=== PATIENT | male | born 1940 | race Native Hawaiian/Other Pacific Islander ===

== ENCOUNTER 2016-10-30 21:56 | Emergency (ER) | payer MEDICAID ==
[2016-10-30 22:27] VITALS: BP 136/95; PULSE 58; RESP 16; TEMP 98.2; O2SAT 98
--- NOTE | 2016-10-30 23:14 | ED PDOC ---
HPI: General Adult Time Seen by Provider: 10/30/16 22:36 Chief Complaint (Nursing): Flu-like Symptoms Chief Complaint (Provider): Ear pain History Per: Patient, Family History/Exam Limitations: no limitations Onset/Duration Of Symptoms: Days (7) Additional Complaint(s): Pt presents with family member who states pt with continued chills and generalized weakness, now with bilateral ear pain. Pt was discharged on 10/20/16 after being admitted for pneumonia, discharged home with course of Zithromax. Family member states pt with blood on Q tip after cleaning. Denies fever, CP, SOB, ear discharge. Past Medical History Reviewed: Nursing Documentation, Vital Signs Vital Signs: Last Vital Signs Temp 98.2 F 10/30/16 22:24 Pulse 58 L 10/30/16 22:24 Resp 16 10/30/16 22:24 BP 136/95 H 10/30/16 22:24 Pulse Ox 98 10/31/16 07:04 - Medical History PMH: CAD, Depression, Diabetes, HTN Denies: Chronic Kidney Disease - Surgical History Surgical History: Back Surgery - Family History Family History: States: Unknown Family Hx - Social History Current smoker - smoking cessation education provided: No Ex-Smoker (has not smoked in the last 12 months): Yes Alcohol: None - Home Medications Home Medications: Ambulatory Orders Medication Instructions Recorded Aspirin [Aspirin Chewable] 81 mg PO DAILY 10/16/16 Atorvastatin [Lipitor] 20 mg PO DAILY 10/16/16 Citalopram Hydrobromide [Celexa] 10 mg PO DAILY 10/16/16 Losartan [Cozaar] 50 mg PO DAILY 10/16/16 Mirtazapine [Remeron] 15 mg PO HS 10/16/16 metFORMIN [glucOPHAGE] 500 mg PO BID 10/16/16 Azithromycin [Zithromax Tri-Fawad] 500 mg PO DAILY #4 tablet 10/18/16 Amoxicillin/Potassium Clav 2 each PO BID #40 tab.er.12h 10/31/16 [Augmentin Xr 1,000-62.5 Tab] - Allergies Allergies/Adverse Reactions: Allergies Allergy/AdvReac Type Severity Reaction Status Date / Time No Known Allergies Allergy Verified 10/30/16 22:24 Review of Systems Constitutional: Positive for: Chills. Negative for: Fever, Sweats ENT: Positive for: Ear Pain. Negative for: Ear Discharge Cardiovascular: Negative for: Chest Pain, Palpitations Respiratory: Negative for: Cough, Shortness of Breath Gastrointestinal: Negative for: Nausea, Vomiting, Abdominal Pain, Diarrhea Skin: Negative for: Rash, Lesions Neurological: Positive for: Weakness. Negative for: Headache Physical Exam - Reviewed Nursing Documentation Reviewed: Yes Vital Signs Reviewed: Yes - Physical Exam Appears: Positive for: Well, No Acute Distress Skin: Positive for: Normal Color, Warm, Dry Cardiovascular/Chest: Positive for: Regular Rate, Rhythm Respiratory: Positive for: Crackles (Bibasilar). Negative for: Decreased Breath Sounds, Accessory Muscle Use, Rales Gastrointestinal/Abdominal: Positive for: Normal Exam, Bowel Sounds Extremity: Negative for: Tenderness, Swelling Neurologic/Psych: Positive for: Alert, kiss mixer II-XII, Oriented. Negative for: Motor/Sensory Deficits, Facial Droop - Laboratory Results Result Diagrams: 10/30/16 23:36 10/30/16 23:36 - ECG Interpretation Of ECG: Sinus tiffanie @ 49, RBBB (old). O2 Sat by Pulse Oximetry: 98 Disposition - Clinical Impression Clinical Impression: Bradycardia - Disposition Referrals: [facility] [Outside] Disposition: Transfer of Care Disposition Time: 00:00 Condition: STABLE Prescriptions: Amoxicillin/Potassium Clav [Augmentin Xr 1,000-62.5 Tab] 2 each PO BID #40 tab.er.12h Patient Signed Over To: Inge Erwin Handoff Comments: Pending labs.
[2016-10-30 23:39] LABS: BASO # 0.1 K/uL (0.0-0.2); BASO % 0.8 % (0.0-2.0); EOS # 0.2 K/uL (0.0-0.7); EOS % 2.9 % (0.0-4.0); HEMATOCRIT 40.1 % (35.0-51.0); LYMPH # 2.2 K/uL (1.0-4.3); LYMPH % 28.4 % (20.0-40.0); MEAN CELL VOLUME 91.2 fl (80.0-94.0); MEAN CORPUSCULAR HEMOGLOBIN 31.1 pg (27.0-31.0); MEAN CORPUSCULAR HGB CONC 34.1 g/dL (33.0-37.0); MEAN PLATELET VOLUME 6.8 fl (7.2-11.7); MONO # 0.7 K/uL (0.0-0.8); MONO % 9.2 % (0.0-10.0); NEUT # 4.6 K/uL (1.8-7.0); NEUT % 58.7 % (50.0-75.0); RED CELL DISTRIBUTION WIDTH 12.6 % (11.5-14.5); WHITE BLOOD COUNT 7.8 K/uL (4.8-10.8)
[2016-10-30 23:48] LABS: ALB/GLOB RATIO 1.3 (1.0-2.1); ALKALINE PHOSPHATASE 44 U/L (38-126); ALT/SGPT 25 U/L (21-72); AST/SGOT 23 U/L (17-59); BILIRUBIN,TOTAL 0.3 mg/dl (0.2-1.3); BLOOD UREA NITROGEN 21 mg/dl (9-20); CARBON DIOXIDE 26 mmol/L (22-30); CHLORIDE 101 mmol/L (98-107); GFR AFRICAN-AMERICAN > 60; GLUCOSE,RANDOM 138 mg/dL (75-110); POTASSIUM 3.9 MMOL/L (3.6-5.0); SODIUM 134 mmol/l (132-148); TOTAL PROTEIN 7.4 G/DL (6.3-8.2)
[2016-10-30 23:57] LABS: PARTIAL THROMBOPLASTIN TIME 27.6 SECONDS (23.3-32.5)
--- NOTE | 2016-10-31 00:01 | ED PDOC ---
- Laboratory Results Result Diagrams: 10/30/16 23:36 10/30/16 23:36 - ECG O2 Sat by Pulse Oximetry: 98 Medical Decision Making Medical Decision Making: midnight= signout from dr zarate pending labs and admit for symptomatic bradycardia to [facility] labs reviewed, trop neg pts states pt still weak will admit to [facility] practice Dr Hussein resident from [facility] aware Dr Olsen came to see pt. and evaluate at bedside DX bradycardia (sinus) Disposition - Clinical Impression Clinical Impression: Bradycardia - POA Present On Arrival: None - Disposition Disposition: Admitted as In-Patient Disposition Time: 00:20 Condition: STABLE Prescriptions: Amoxicillin/Potassium Clav [Augmentin Xr 1,000-62.5 Tab] 2 each PO BID #40 tab.er.12h
--- NOTE | 2016-10-31 10:33 | RAD ---
HISTORY: Chills COMPARISON: Comparison is made to the previous study dated 10/16/2016 TECHNIQUE: Chest PA and lateral FINDINGS: LUNGS: Small bibasilar opacities seen. PLEURA: Wanting of both costophrenic angles which could be due to pleural thickening or trace pleural effusion. CARDIOVASCULAR: Normal. OSSEOUS STRUCTURES: No significant abnormalities. VISUALIZED UPPER ABDOMEN: Normal. OTHER FINDINGS: None. IMPRESSION: Re- demonstration of small bibasilar opacities associated with blunting of both costophrenic angles.
--- NOTE | 2016-10-31 18:38 | CP.PCM.DIS ---
Provider - Provider Time Spent in preparation of Discharge (in minutes): 45 Diagnosis - Discharge Diagnosis (1) Acute otitis media Status: Acute Comment: Patient reports recurrent ear infections. Provided antibiotic treatment for AOM. With f/u in [facility] in 10 days. ED Precautions provided regarding worsening symptoms, fevers, persistent diarrhea. (2) Sinus bradycardia, chronic Status: Chronic Comment: Patient reports chronic bradycardia for which he is being managed by Dr Kelly (signal processing engineer) in [place]. Hospital Course - Lab Results Lab Results: Most Recent Lab Values WBC 7.8 K/uL (4.8-10.8) 10/30/16 23:36 RBC 4.40 Mil/uL (4.40-5.90) 10/30/16 23:36 Hgb 13.7 g/dL (12.0-18.0) 10/30/16 23:36 Hct 40.1 % (35.0-51.0) 10/30/16 23:36 MCV 91.2 fl (80.0-94.0) 10/30/16 23:36 MCH 31.1 pg (27.0-31.0) H 10/30/16 23:36 MCHC 34.1 g/dL (33.0-37.0) 10/30/16 23:36 RDW 12.6 % (11.5-14.5) 10/30/16 23:36 Plt Count 236 K/uL (130-400) 10/30/16 23:36 MPV 6.8 fl (7.2-11.7) L 10/30/16 23:36 Neut % (Auto) 58.7 % (50.0-75.0) 10/30/16 23:36 Lymph % (Auto) 28.4 % (20.0-40.0) 10/30/16 23:36 Carroll % (Auto) 9.2 % (0.0-10.0) 10/30/16 23:36 Eos % (Auto) 2.9 % (0.0-4.0) 10/30/16 23:36 Baso % (Auto) 0.8 % (0.0-2.0) 10/30/16 23:36 Neut # 4.6 K/uL (1.8-7.0) 10/30/16 23:36 Lymph # 2.2 K/uL (1.0-4.3) 10/30/16 23:36 Carroll # 0.7 K/uL (0.0-0.8) 10/30/16 23:36 Eos # 0.2 K/uL (0.0-0.7) 10/30/16 23:36 Baso # 0.1 K/uL (0.0-0.2) 10/30/16 23:36 PT 10.1 SECONDS (9.6-11.2) 10/30/16 23:36 INR 0.97 (0.92-1.08) 10/30/16 23:36 APTT 27.6 SECONDS (23.3-32.5) 10/30/16 23:36 Sodium 134 mmol/l (132-148) 10/30/16 23:36 Potassium 3.9 MMOL/L (3.6-5.0) 10/30/16 23:36 Chloride 101 mmol/L (98-107) 10/30/16 23:36 Carbon Dioxide 26 mmol/L (22-30) 10/30/16 23:36 Anion Gap 12 (10-20) 10/30/16 23:36 BUN 21 mg/dl (9-20) H 10/30/16 23:36 Creatinine 0.8 mg/dL (0.8-1.5) 10/30/16 23:36 Est GFR ( Amer) > 60 10/30/16 23:36 Est GFR (Non-Af Amer) > 60 10/30/16 23:36 POC Glucose (mg/dL) 144 mg/dL (65-110) H 10/30/16 23:26 Random Glucose 138 mg/dL (75-110) H 10/30/16 23:36 Calcium 9.0 mg/dL (8.4-10.2) 10/30/16 23:36 Total Bilirubin 0.3 mg/dl (0.2-1.3) 10/30/16 23:36 AST 23 U/L (17-59) 10/30/16 23:36 ALT 25 U/L (21-72) 10/30/16 23:36 Alkaline Phosphatase 44 U/L (38-126) 10/30/16 23:36 Troponin I < 0.0120 ng/mL (0.00-0.120) 10/30/16 23:36 NT-Pro-B Natriuret Pep 115 pg/ml (0-900) 10/30/16 23:36 Total Protein 7.4 G/DL (6.3-8.2) 10/30/16 23:36 Albumin 4.1 g/dL (3.5-5.0) 10/30/16 23:36 Globulin 3.3 gm/dL (2.2-3.9) 10/30/16 23:36 Albumin/Globulin Ratio 1.3 (1.0-2.1) 10/30/16 23:36 - Hospital Course Hospital Course: S: 76M p/w right ear pain extending down into neck with associated chills. Reports completing course of antibiotics for pneumonia but still feels a " little weak" and is easily fatigued. He denies any dizziness, SOB, chest pain, palpitations, feelings of fainting, nausea, diaphoresis. O: 98.2- 58L- 136/95- 16- 98%RA Gen: NAD, pleasant HEENT: NCAT, EOMI, PERRLA, LEFT ear clear w/o pain, RIGHT ear with non-purulent effusion and trace blood in external auditory canal w/o ulceration/defect of canal, posterior pharynx clear Adenopathy: RIGHT anterior cervical enlargement PULM: CTAB, good air entry, no wheezing/rhonchi/rales noted CARD: S1S1, Reg, SB, no murmurs noted ABD: soft, NT, ND EXT: no edema Discussed admission with the patient and daughter and they requested to sign out AMA despite explaining potential risks of heart stopping, drop in blood pressure/ arrhythmia stating that "they did not come here for something that he has had for years". A/P: 76M PMH DM/SB recent discharged and completed treated for pneumonia p/w symptoms and clinical findings most c/w AOM. - Augmentin 2000/125mg, PO, BID, x10 days - AMA signed by patient - Instructed to f/u with signal processing engineer w/i 2wks - Instructed to f/u with [facility] in 10 days - ED precautions provided - Findings d/w Dr Erwin Discharge Exam - Head Exam Head Exam: ATRAUMATIC, NORMAL INSPECTION - Eye Exam Eye Exam: EOMI, Normal appearance, PERRL - ENT Exam ENT Exam: Mucous Membranes Moist, Normal Exam, Normal Oropharynx. absent: TM's Normal Bilaterally (RIGHT with non-purulent effusion) - Neck Exam Neck exam: Full Rom, Lymphadenopathy (RIGHT ant super cerv) - Respiratory Exam Respiratory Exam: Clear to PA & Lateral, NORMAL BREATHING PATTERN. absent: Rales, Rhonchi, Wheezes - Cardiovascular Exam Cardiovascular Exam: Bradycardia, REGULAR RHYTHM, +S1, +S2 - GI/Abdominal Exam GI & Abdominal Exam: Normal Bowel Sounds, Soft. absent: Tenderness - Extremities Exam Extremities exam: normal capillary refill, pedal pulses present - Neurological Exam Neurological exam: Alert, Oriented x3 - Psychiatric Exam Psychiatric exam: Normal Affect, Normal Mood - Skin Skin Exam: Normal Color, Warm Discharge Plan - Discharge Medications Prescriptions: Amoxicillin/Potassium Clav [Augmentin Xr 1,000-62.5 Tab] 2 each PO BID #40 tab.er.12h - Follow Up Plan Condition: STABLE Disposition: AGAINST MEDICAL ADVICE
--- NOTE | 2016-11-06 17:19 | CARD ---
APPROVED REPORT EKG Measurement Heart [id number] <Conclusion> Sinus bradycardia Right bundle branch block Abnormal ECG
== END 2016-10-31 01:41 | disposition left against medical advice (07) ==
LOC: H.ER 21:56 → UNDOADMOB 10-31 00:11 → H.ERHOLD 10-31 00:11 → H.ER 10-31 01:41
DX: R00.1 Bradycardia, unspecified (principal); E11.9 Type 2 diabetes mellitus without complications; I10 Essential (primary) hypertension; Z79.82 Long term (current) use of aspirin; Z87.891 Personal history of nicotine dependence

== ENCOUNTER 2017-11-18 16:02 | Emergency (ER) | payer MEDICAID, MEDICARE ==
[2017-11-18] MEDS ORDERED: Albuterol-Ipratrop 3 mg / 0.5 (3 ml) UD IH STA (16:45)
[2017-11-18] MEDS ORDERED: Sodium Chloride 0.9% 1,000 ML IV SCH (16:45)
[2017-11-18] MEDS ORDERED: Albuterol-Ipratrop 3 mg / 0.5 (3 ml) UD INH STA (16:45)
--- NOTE | 2017-11-18 16:49 | ED PDOC ---
HPI: CCC, URI, Sore Throat Time Seen by Provider: 11/18/17 16:23 Chief Complaint (Nursing): Cough, Cold, Congestion Chief Complaint (Provider): Cough History Per: Patient ( ) History/Exam Limitations: no limitations Current Symptoms Are (Timing): Still Present Additional Complaint(s): Pt. with cough for 2 days. Bodyaches, weakness all over. Pt. also with yellow phlegm with occasional blood tinge. Nasal congestion. No dyspnea, chest pain, headaches, dizziness. No dysuria. No abd pain. Has had pneumonia in the past. Past Medical History Reviewed: Nursing Documentation, Vital Signs Vital Signs: Last Vital Signs Temp 98.6 F 11/18/17 16:17 Pulse 58 L 11/18/17 17:59 Resp 19 11/18/17 17:59 BP 154/90 H 11/18/17 17:59 Pulse Ox 98 11/18/17 17:59 - Medical History PMH: CAD, Depression, Diabetes, HTN, Pneumonia Denies: Chronic Kidney Disease Other PMH: pulm fibrosis - Surgical History Surgical History: Back Surgery - Family History Family History: States: Unknown Family Hx - Living Arrangements Living Arrangements: With Family - Social History Alcohol: None Drugs: Denies - Home Medications Home Medications: Ambulatory Orders Medication Instructions Recorded Losartan [Cozaar] 50 mg PO DAILY 10/16/16 metFORMIN [glucOPHAGE] 500 mg PO BID 10/16/16 Albuterol Sulfate [Proair Hfa] 0.09 mg IH Q6H PRN #2 inh 11/18/17 Azithromycin [Zithromax] 250 mg PO DAILY 5 Days tab 11/18/17 Benzonatate [Tessalon Perles] 100 mg PO BID PRN 5 Days sgl 11/18/17 Ibuprofen [Motrin] 600 mg PO TID 7 Days tab 11/18/17 Oseltamivir Phosphate [Tamiflu] 75 mg PO BID 5 Days capsule 11/18/17 amLODIPine [Norvasc] PO 11/18/17 predniSONE [predniSONE Tab] 20 mg PO BID 5 Days tab 11/18/17 - Allergies Allergies/Adverse Reactions: Allergies Allergy/AdvReac Type Severity Reaction Status Date / Time No Known Allergies Allergy Verified 10/30/16 22:24 Review of Systems ROS Statement: Except As Marked, All Systems Reviewed And Found Negative Constitutional: Positive for: Weakness ENT: Positive for: Nose Pain, Nose Discharge, Nose Congestion Respiratory: Positive for: Cough Musculoskeletal: Positive for: Other (body aches) Neurological: Positive for: Weakness Physical Exam - Reviewed Nursing Documentation Reviewed: Yes Vital Signs Reviewed: Yes - Physical Exam Appears: Positive for: Non-toxic, No Acute Distress Head Exam: Positive for: ATRAUMATIC, NORMAL INSPECTION, NORMOCEPHALIC Skin: Positive for: Normal Color, Warm, DRY Eye Exam: Positive for: EOMI, Normal appearance, PERRL ENT: Positive for: Nasal Congestion. Negative for: Pharyngeal Erythema, Tonsillar Exudate Neck: Positive for: Normal, Painless ROM, Supple Cardiovascular/Chest: Positive for: Regular Rate, Rhythm Respiratory: Positive for: Decreased Breath Sounds, Wheezing (mild end expiratory) Gastrointestinal/Abdominal: Positive for: Normal Exam, Bowel Sounds, Soft. Negative for: Tenderness Back: Positive for: Normal Inspection. Negative for: L CVA Tenderness, R CVA Tenderness Extremity: Positive for: Normal ROM. Negative for: Tenderness, Pedal Edema Neurologic/Psych: Positive for: Alert, Oriented - Laboratory Results Result Diagrams: 11/18/17 17:18 11/18/17 17:18 Interpretation Of Abn Labs: no acute - ECG ECG: Positive for: Interpreted By Me, Viewed By Me ECG Rhythm: Positive for: Right Bundle Branch Block O2 Sat by Pulse Oximetry: 96 Pulse Ox Interpretation: Normal - Radiology X-Ray: Read By Radiologist X-Ray Interpretation: No Acute Disease - Progress ED Course And Treament: 1821: Stable. AAOx3. Pain free. Tolerated PO. Does not meet sepsis criteria. Will rx zpak and tamiflu. Disposition - Clinical Impression Clinical Impression: URI (upper respiratory infection), Cough, Fibrosis lung - Patient ED Disposition Is Patient to be Admitted: No Counseled Patient/Family Regarding: Studies Performed, Diagnosis, Need For Followup, Rx Given - Disposition Referrals: [facility] [Outside] - 11/19/17 Disposition: Routine/Home Disposition Time: 18:00 Condition: STABLE Additional Instructions: Return if not better in 3 days. Prescriptions: Albuterol Sulfate [Proair Hfa] 0.09 mg IH Q6H PRN #2 inh PRN Reason: Wheezing Azithromycin [Zithromax] 250 mg PO DAILY 5 Days tab Benzonatate [Tessalon Perles] 100 mg PO BID PRN 5 Days sgl PRN Reason: Cough Ibuprofen [Motrin] 600 mg PO TID 7 Days tab Oseltamivir Phosphate [Tamiflu] 75 mg PO BID 5 Days capsule predniSONE [predniSONE Tab] 20 mg PO BID 5 Days tab Instructions: Cough in Adults, Viral Upper Respiratory Infection, Adult (DC), Interstitial Lung Disease Forms: [facility] (Latvian)
--- NOTE | 2017-11-18 17:19 | RAD ---
HISTORY: Sepsis Patient COMPARISON: Chest radiograph dated 10/30/2016. FINDINGS: LUNGS: No active pulmonary disease. PLEURA: No significant pleural effusion identified, no pneumothorax apparent. CARDIOVASCULAR: Cardiomediastinal silhouette stably enlarged. OSSEOUS STRUCTURES: Unchanged. VISUALIZED UPPER ABDOMEN: Normal. OTHER FINDINGS: None. IMPRESSION: No active disease.
[2017-11-18 17:33] LABS: ALB/GLOB RATIO 1.1 (1.0-2.1); ALBUMIN 4.2 g/dL (3.5-5.0); ALT/SGPT 31 U/L (21-72); AST/SGOT 27 U/L (17-59); BLOOD UREA NITROGEN 23 mg/dl (9-20); CALCIUM 9.1 mg/dL (8.4-10.2); GFR AFRICAN-AMERICAN > 60; GFR NON-AFRICAN AMERICAN > 60
[2017-11-18 17:35] LABS: VENOUS BLOOD GAS BASE EXCESS 2.8 mmol/L (0.0-2.0); VENOUS BLOOD GAS PCO2 47 mmHg (40-60); VENOUS BLOOD GAS PO2 45 mm/Hg (30-55); VENOUS BLOOD PH 7.39 (7.32-7.43)
[2017-11-18 17:42] LABS: BASO # 0.1 K/uL (0.0-0.2); BASO % 0.9 % (0.0-2.0); EOS # 0.3 K/uL (0.0-0.7); LYMPH # 1.2 K/uL (1.0-4.3); LYMPH % 12.3 % (20.0-40.0); MEAN CELL VOLUME 92.5 fl (80.0-94.0); MEAN CORPUSCULAR HEMOGLOBIN 31.4 pg (27.0-31.0); MEAN CORPUSCULAR HGB CONC 33.9 g/dL (33.0-37.0); MEAN PLATELET VOLUME 6.9 fl (7.2-11.7); MONO % 10.3 % (0.0-10.0); NEUT # 7.1 K/uL (1.8-7.0); NEUT % 73.5 % (50.0-75.0); RBC 4.46 Mil/uL (4.40-5.90); RED CELL DISTRIBUTION WIDTH 12.8 % (11.5-14.5); WHITE BLOOD COUNT 9.7 K/uL (4.8-10.8)
[2017-11-18] MEDS ORDERED: Albuterol-Ipratrop 3 mg / 0.5 (3 ml) UD ONE (17:44)
[2017-11-18 17:45] LABS: B-TYPE NATRIURETIC PEPTIDE 80.9 pg/ml (0-900)
[2017-11-18 17:49] LABS: INR 0.9 (0.9-1.2); PARTIAL THROMBOPLASTIN TIME 31.3 Seconds (25.6-37.1); PROTHROMBIN TIME 10.2 Seconds (9.8-13.1)
[2017-11-18 19:40] VITALS: BP 143/76; PULSE 76; RESP 18; TEMP 98; O2SAT 100
--- NOTE | 2017-11-20 11:54 | CARD ---
APPROVED REPORT EKG Measurement Heart [id number] VA [id number] [id number] <Conclusion> Sinus bradycardia Right bundle branch block Abnormal ECG
== END 2017-11-18 18:30 | disposition home or self-care (01) ==
LOC: H.ER 16:02
DX: J06.9 Acute upper respiratory infection, unspecified (principal); R05 Cough; J84.10 Pulmonary fibrosis, unspecified; F32.9 Major depressive disorder, single episode, unspecified; E11.9 Type 2 diabetes mellitus without complications; I10 Essential (primary) hypertension; I25.10 Atherosclerotic heart disease of native coronary artery without angina pectoris; Z79.84 Long term (current) use of oral hypoglycemic drugs
CPT/HCPCS: 71045; 80053; 82803; 83735; 83880; 84100; 84484; 85025; 85610; 85730; 87040; 87804; 93005; 94640; 96374; 99283; J2930; J7040